=== PATIENT | female | born 1980 | race Caucasian/White ===

== ENCOUNTER 2020-07-06 17:52 | Emergency (ER) | payer OTHER ==
--- OUTSIDE RECORDS SUMMARY | 2020-07-06 18:23 | XMS REPORT | Continuity of Care Document ---
:1980 Author Organization [facility] t Address [address] [place] [address] Care Team Providers Name Role Phone Provider, Urgent Care Attending Clinician Unavailable Problems This patient has no known problems. Allergies, Adverse Reactions, Alerts This patient has no known allergies or adverse reactions. Medications This patient has no known medications. Procedures This patient has no known procedures. Encounters Start End Encounter Admission Attending Care Care Encounter Source Date/Time Date/Time Type Type Clinicians Facility Department ID 2020-07-03 2020-07-03 Urgent Provider, [facility] [id number] 11:19:40 12:07:[address] [facility] [id number] [facility] [id number] Jose [id number] [address]al [address] Results This patient has no known results.
[2020-07-06] MEDS ORDERED: ACETAMINOPHEN 500 MG TAB ONE (18:29)
[2020-07-06] MEDS ORDERED: METHYLPREDNISOLONE 125 MG INJ ONE (19:58)
[2020-07-06] MEDS ORDERED: IPRATROPIUM BROM 0.5MG/2.5ML ONE (19:58)
[2020-07-06] MEDS ORDERED: NA CHLORIDE 0.9% 500 ML ONE (19:59)
[2020-07-06] MEDS ORDERED: ALBUTEROL 2.5 MG/3 ML NEB SOL ONE (19:59)
--- NOTE | 2020-07-06 19:59 | RAD REPORT ---
EXAM DESCRIPTION: RAD - Chest Single View - 07/06/2020 7:41 pm CLINICAL HISTORY: shortness of breath Chest pain. COMPARISON: No comparisons FINDINGS: Portable technique limits examination quality. Mild interstitial opacities are present bilaterally, greatest in the left lung base, compatible with pneumonia. The heart is normal in size. No displaced fractures.
[2020-07-06 20:09] LABS: Absolute Lymphocytes (CBC) 0.9 K/uL (0.7-4.9); Basophils % 0.3 % (0-1.3); Hematocrit 37.1 % (36.0-45.0); Lymphocytes % 21.7 % (15.3-44.8); MPV 8.3 fL (7.6-11.3); RBC Red Blood Cell Count 4.16 M/uL (3.86-4.86)
[2020-07-06 20:30] LABS: ALT/SGPT 31 U/L (12-78); AST/SGOT 38 U/L (15-37); Albumin 3.3 g/dL (3.4-5.0); Alkaline Phosphatase 68 U/L (45-117); BUN Blood Urea Nitrogen 10 mg/dL (7-18); Bicarbonate 29 mmol/L (21-32); Bilirubin Total 0.7 mg/dL (0.2-1.0); Glucose Level 105 mg/dL (74-106); Potassium 4.5 mmol/L (3.5-5.1); Protein, Total 6.9 g/dL (6.4-8.2); Sodium Level 138 mmol/L (136-145)
--- NOTE | 2020-07-06 21:42 | EDPHYS ---
Physician Documentation [facility] Name: Brandon Peterson Age: 40 yrs Sex: Female : 1980 Arrival Date: 07/06/2020 Time: 17:57 Bed 19 Private MD: ED Physician Christopher Alvarado HPI: 07/06 18:13 This 40 yrs old Female presents to ER via Ambulatory with complaints of jmm COVID+, Fever, Shortness Of Breath. 18:13 The patient or guardian reports cough. Onset: The symptoms/episode began/occurred jmm gradually, 24 day(s) ago. Modifying factors: The symptoms are alleviated by nothing. the symptoms are aggravated by nothing. Associated signs and symptoms: Pertinent positives: fever. This is a 40 year old female with a history of wagners that presents to the ED with complaints of shortness of breath worsening since diagnoses of coronavirus. Patient has currently taken a 5 day course of dexamethasone and a 5 day course of oral abx with little relief. . 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 - Social history:: Smoking status: Patient denies any tobacco usage or history of. ROS: 18:13 Cardiovascular: Negative for chest pain, palpitations, and edema. jmm 18:13 Constitutional: Positive for fever. 18:13 Respiratory: Positive for cough. 18:13 Respiratory: Positive for shortness of breath. 18:13 Neuro: Negative for weakness. 18:13 All other systems are negative. Exam: 18:13 Constitutional: This is a well developed, well nourished patient who is awake, alert, jmm and in no acute distress. Head/Face: atraumatic. Eyes: EOMI, no conjunctival erythema appreciated ENT: Moist Mucus Membranes Neck: Trachea midline, Supple Chest/axilla: Normal chest wall appearance and motion. 18:13 Abdomen/GI: Non distended, soft Back: Normal ROM Skin: General appearance color normal MS/ Extremity: Moves all extremities, no obvious deformities appreciated, no edema noted to the lower extremities Neuro: Awake and alert, normal gait Psych: Behavior is normal, Mood is normal, Patient is cooperative and pleasant 18:13 Cardiovascular: Rate: tachycardic, Rhythm: regular. 18:13 Respiratory: the patient does not display signs of respiratory distress, Respirations: normal. Vital Signs: 18:04 BP 103 / 78; Pulse 128; Resp 17; Temp 101.8; Pulse Ox 97% ; Weight 61.23 kg; Height 5 ll1 ft. 6 in. (167.64 cm); Pain 8/10; 19:11 Temp 100.7(O); ll1 20:56 BP 100 / 53; Pulse 99; Resp 18; Temp 99.6; Pulse Ox 96% on R/A; ea 21:00 BP 99 / 54; Pulse 97; Resp 19; Pulse Ox 94% on R/A; ea 22:00 BP 100 / 54; Pulse 90; Resp 19; Temp 98.9; Pulse Ox 95% on R/A; ea 18:04 Body Mass Index 21.79 (61.23 kg, 167.64 cm) ll1 MDM: 19:21 Patient medically screened. [facility] 21:39 Data reviewed: vital signs, nurses notes. Counseling: I had a detailed discussion with herminia the patient and/or guardian regarding: the historical points, exam findings, and any diagnostic results supporting the discharge/admit diagnosis, lab results, radiology results, the need for outpatient follow up, to return to the emergency department if symptoms worsen or persist or if there are any questions or concerns that arise at home. ED course: Patient is alert and non toxic in appearance in the ED. Patient feels better. Advised to follow up with pcp and otherwise given strict return precautions. Patient understood and agrees with the plan of care. . 07/06 19:23 Order name: CBC with Diff [facility] 07/06 19:23 Order name: CMP; Complete Time: 20:43 [facility] 07/06 19:23 Order name: CRP; Complete Time: 20:43 [facility] 07/06 19:23 Order name: D-Dimer; Complete Time: 20:43 [facility] 07/06 19:23 Order name: Blood Culture Adult (2) [facility] 07/06 19:23 Order name: Procalcitonin; Complete Time: 21:03 [facility] 07/06 19:23 Order name: Chest Single View XRAY; Complete Time: 20:13 [facility] 07/06 19:23 Order name: Lactate; Complete Time: 20:43 [facility] 07/06 19:23 Order name: Saline Lock; Complete Time: 20:38 [facility] 07/06 19:24 Order name: CBC with Automated Diff; Complete Time: 20:43 EDMS Administered Medications: 18:13 Drug: Tylenol 1000 mg Route: PO; ll1 19:12 Follow up: Response: No adverse reaction; Temperature is decreased; RASS: Alert and ll1 Calm (0) 20:01 Drug: SOLU-Medrol 125 mg Route: IVP; Site: right antecubital; ea 21:50 Follow up: Response: No adverse reaction ea 20:01 Drug: Albuterol - atroVENT (3:1) (2.5 mg - 0.5 mg) 3 ml Route: Nebulizer; ea 21:50 Follow up: Response: No adverse reaction ea 20:01 Drug: NS 0.9% 500 ml Route: IV; Rate: bolus; Site: right antecubital; ea 20:50 Follow up: Response: No adverse reaction; IV Status: Completed infusion; IV Intake: ea 500ml Disposition: 07/06/20 21:42 Discharged to Home. Impression: Pneumonia. - Condition is Stable. - Discharge Instructions: Community-Acquired Pneumonia, Adult, COVID-19. - Prescriptions for ivermectin 3 mg Oral tablet - take 6 tablet by ORAL route as directed one dose on day one and one dose on day 3; 12 tablet. Levaquin 750 mg Oral Tablet - take 1 tablet by ORAL route once daily for 10 days; 10 tablet. - Medication Reconciliation Form, Thank You Letter, Antibiotic Education, Prescription Opioid Use form. - Follow up: Private Physician; When: 2 - 3 days; Reason: Recheck today's complaints, Continuance of care, Re-evaluation by your physician. Addendum: 07/09/2020 05:15 Co-signature as Attending Physician, Christopher Alvarado MD I agree with the assessment and k dr plan of care. Signatures: Dispatcher [employer] EDMS Christopher Alvarado MD MD kdr Mickail, Joel, PA PA jmm Antunez, Elena RN He Bledsoe ea, RN RN ll1 Corrections: (The following items were deleted from the chart) 07/06 22:13 21:42 07/06/2020 21:42 Discharged to Home. Impression: Pneumonia. Condition is Stable. ea Forms are Medication Reconciliation Form, Thank You Letter, Antibiotic Education, Prescription Opioid Use. Follow up: Private Physician; When: 2 - 3 days; Reason: Recheck today's complaints, Continuance of care, Re-evaluation by your physician. herminia
--- NOTE | 2020-07-06 21:42 | ER ---
Nurse's Notes [facility] Name: Brandon Peterson Age: 40 yrs Sex: Female : 1980 Arrival Date: 07/06/2020 Time: 17:57 Bed 19 Private MD: Diagnosis: Pneumonia Presentation: 07/06 18:04 Chief complaint: Patient states: Covid positive since 06/11. Has done steroids, inhaler, ll1 on azithromycin now since Thursday. +nausea for 2 weeks, diarrhea has resolved. States she thought she was getting better, but symptoms got worse this week. fever 103.5 at home. Coronavirus screen: Client denies travel out of the [place] in the last 14 days. congestion, cough unrelated to allergies, difficulty breathing, fatigue, fever, shortness of breath, Client presents with at least one sign or symptom that may indicate coronavirus-19. Standard/surgical mask placed on the client. Ebola Screen: Patient denies travel to an Ebola-affected area in the 21 days before illness onset. Initial Sepsis Screen: Does the patient meet any 2 criteria? Temp <36.0*C (96.8*F)) or > 38.3*C (100.9*F). HR > 90 bpm. Yes Does the patient have a suspected source of infection? Yes: Productive cough/pneumonia. Risk Assessment: Do you want to hurt yourself or someone else? Patient reports no desire to harm self or others. Onset of symptoms was June 11, 2020. 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 - Social history:: Smoking status: Patient denies any tobacco usage or history of. Screenin:50 Abuse screen: Denies threats or abuse. Nutritional screening: No deficits noted. ea Tuberculosis screening: No symptoms or risk factors identified. Fall Risk IV access (20 points). Assessment: 19:50 General: Appears uncomfortable, Behavior is appropriate for age. Pain: Denies pain. ea Neuro: Level of Consciousness is awake, alert, obeys commands, Oriented to person, place, time. Cardiovascular: Patient's skin is warm and dry. Respiratory: Airway is patent Respiratory effort is even, unlabored, Respiratory pattern is regular, symmetrical. Derm: Skin is pink, warm \T\ dry. 20:30 Reassessment: Patient and/or family updated on plan of care and expected duration. Pain ea level reassessed. Patient is alert, oriented x 3, equal unlabored respirations, skin warm/dry/pink. Awaiting on results. 22:09 Reassessment: Patient and/or family updated on plan of care and expected duration. Pain ea level reassessed. Patient is alert, oriented x 3, equal unlabored respirations, skin warm/dry/pink. Discharge instruction given to patient, verbalized the understanding of instruction. Pt left ED ambulatory tolerating well. Vital Signs: 18:04 BP 103 / 78; Pulse 128; Resp 17; Temp 101.8; Pulse Ox 97% ; Weight 61.23 kg; Height 5 ll1 ft. 6 in. (167.64 cm); Pain 8/10; 19:11 Temp 100.7(O); ll1 20:56 BP 100 / 53; Pulse 99; Resp 18; Temp 99.6; Pulse Ox 96% on R/A; ea 21:00 BP 99 / 54; Pulse 97; Resp 19; Pulse Ox 94% on R/A; ea 22:00 BP 100 / 54; Pulse 90; Resp 19; Temp 98.9; Pulse Ox 95% on R/A; ea 18:04 Body Mass Index 21.79 (61.23 kg, 167.64 cm) ll1 ED Course: 17:57 Patient arrived in ED. mr 18:08 Triage completed. ll1 18:09 Arm band placed on. ll1 19:11 Patient placed in an exam room, on a stretcher. 1 19:17 Neal Reyes PA is PHCP. [facility] 19:17 Christopher Alvarado MD is Attending Physician. [facility] 19:20 Emily Casillas RN is Primary Nurse. ea 19:30 Inserted saline lock: 20 gauge in right antecubital area, using aseptic technique. ea Blood collected. 19:41 Chest Single View XRAY In Process Unspecified. EDMS 20:57 Patient has correct armband on for positive identification. Bed in low position. Call ea light in reach. Side rails up X2. 22:08 No provider procedures requiring assistance completed. IV discontinued, intact, ea bleeding controlled, No redness/swelling at site. Pressure dressing applied. Administered Medications: 18:13 Drug: Tylenol 1000 mg Route: PO; ll1 19:12 Follow up: Response: No adverse reaction; Temperature is decreased; RASS: Alert and ll1 Calm (0) 20:01 Drug: SOLU-Medrol 125 mg Route: IVP; Site: right antecubital; ea 21:50 Follow up: Response: No adverse reaction ea 20:01 Drug: Albuterol - atroVENT (3:1) (2.5 mg - 0.5 mg) 3 ml Route: Nebulizer; ea 21:50 Follow up: Response: No adverse reaction ea 20:01 Drug: NS 0.9% 500 ml Route: IV; Rate: bolus; Site: right antecubital; ea 20:50 Follow up: Response: No adverse reaction; IV Status: Completed infusion; IV Intake: ea 500ml Intake: 20:50 IV: 500ml; Total: 500ml. ea Outcome: 21:42 Discharge ordered by . herminia 22:10 Discharged to home ambulatory. ea 22:10 Condition: stable 22:10 Discharge instructions given to patient, Instructed on discharge instructions, follow up and referral plans. medication usage, Demonstrated understanding of instructions, follow-up care, medications, Prescriptions given X 2. 22:13 Patient left the ED. ea Signatures: Dispatcher [employer] EDMS Neal Reyes PA PA jmm Rivera, Mary mr Emily Casillas RN RN ea Lewis, Lynsay, RN RN ll1
[2020-07-06 23:56] VITALS: BP 100/54; TEMP 98.9; O2SAT 95
== END 2020-07-06 22:13 | disposition home or self-care (01) ==
LOC: ER 17:52
DX: J18.9 Pneumonia, unspecified organism (principal); D89.89 Other specified disorders involving the immune mechanism, not elsewhere classified; Z86.16 Personal history of COVID-19; Z88.1 Allergy status to other antibiotic agents
CPT/HCPCS: 96361; 87040 ×2; 85025; 36415; 85379; 83605; 80053; 84145; 86140; 71045; 96374; 99284; J7040; J2930